=== PATIENT | male | born 1950 | race Caucasian/White ===

== ENCOUNTER 2017-10-28 12:21 | Inpatient (IN) | payer OTHER ==
[~2017-10-28] VITALS: Ht 177.8 cm; Wt 117.9 kg
[2017-10-28] MEDS ORDERED: FURO20TA3 PO (13:47)
[2017-10-28] MEDS ORDERED: OMEG-72 PO (13:47)
[2017-10-28] MEDS ORDERED: CHOL100011 PO (13:47)
[2017-10-28] MEDS ORDERED: BUPR100T11 PO (13:47)
[2017-10-28] MEDS ORDERED: GLIP5TAB10 PO (13:47)
[2017-10-28] MEDS ORDERED: ATOR-2 PO (13:47)
[2017-10-28] MEDS ORDERED: CLOP75TA PO (13:47)
[2017-10-28] MEDS ORDERED: NITR0.4T28 SL (13:47)
[2017-10-28] MEDS ORDERED: CARV3.122 PO (13:47)
[2017-10-28] MEDS ORDERED: METF500T5 PO (13:47)
[2017-10-28 13:50] VITALS: BP 129/79
[2017-10-28] MEDS ORDERED: POLYETHYLENE GLYCOL 17 GM PACKET PO PRN (14:30)
[2017-10-28] MEDS ORDERED: hydrALAzine 20 MG/ML, 1ML IVPush PRN (14:30)
[2017-10-28] MEDS ORDERED: ONDANSETRON 2MG/ML, 2ML IVPush PRN (14:30)
[2017-10-28] MEDS: BUPROPION SR 150 MG TABLET PO SCH (14:30)
[2017-10-28] MEDS ORDERED: BISACODYL 10 MG SUPP PR PRN (14:30)
[2017-10-28] MEDS ORDERED: DIPHENHYDRAMINE 25 MG CAPSULE PO PRN (14:30)
[2017-10-28] MEDS ORDERED: VANCOMYCIN PER PHARMACY MC PRN (14:30)
[2017-10-28] MEDS ORDERED: PHARMACOKINETIC MONITORING MC PRN (14:30)
[2017-10-28] MEDS ORDERED: ACETAMINOPHEN 325 MG TABLET PO PRN (14:30)
[2017-10-28] MEDS ORDERED: DOCUSATE 100 MG CAPSULE PO PRN (14:30)
[2017-10-28] MEDS: ENOXAPARIN 40 MG/0.4 ML SQ SCH (14:30)
[2017-10-28 14:59] LABS: CREATININE 0.91 mg/dL (0.7-1.3)
[2017-10-28] MEDS ORDERED: VANCOMYCIN 1,800 MG in SODIUM CHLORIDE 0.9% 250 ML IV ONE (15:00)
[2017-10-28] MEDS: PIPERACILLIN/TAZO/PMX 3.375GM 50 ML IV SCH ×2 (15:39→20:59)
[2017-10-28] MEDS: OMEGA-3/FISH OIL CAPSULE PO SCH (15:49)
[2017-10-28 15:58] LABS: HEMOGLOBIN A1C 10.2 % (4.2-6.3)
[2017-10-28] MEDS: INSULIN LISPRO 100 UNITS/ML, PEN SQ-INSULIN SCH ×2 (17:28→20:59)
[2017-10-28 18:44] VITALS: BP 125/78
[2017-10-28] MEDS: ATORVASTATIN 80 MG TABLET PO SCH (20:59)
[2017-10-28] MEDS: CARVEDILOL 3.125 MG TABLET PO SCH (20:59)
[2017-10-28] MEDS: FUROSEMIDE 20 MG TABLET PO SCH (21:00)
[2017-10-28] MEDS: SODIUM CHLORIDE FLUSH 10ML SYR IVF SCH (21:00)
[2017-10-28] MEDS: KETOROLAC 30 MG/1 ML IVPush PRN (21:01)
[2017-10-29 00:41] VITALS: BP 99/64
[2017-10-29] MEDS: BUPROPION SR 150 MG TABLET PO SCH ×2 (03:17→13:51)
[2017-10-29] MEDS: PIPERACILLIN/TAZO/PMX 3.375GM 50 ML IV SCH ×4 (03:17→22:21)
[2017-10-29] MEDS: VANCOMYCIN 2,000 MG in SODIUM CHLORIDE 0.9% 500 ML IV SCH ×2 (05:14→23:05)
[2017-10-29 05:21] LABS: BASOPHILS # (AUTO) 0.04 x10^3/uL (0-0.1); BASOPHILS % (AUTO) 0 % (0-1); EOSINOPHILS # (AUTO) 0.18 x10^3/uL (0-0.4); EOSINOPHILS % (AUTO) 1 % (1-7); LYMPHOCYTES # (AUTO) 3.31 x10^3/uL (1-3.4); LYMPHOCYTES % (AUTO) 21 % (22-44); MD NO; MEAN CORPUSCULAR HEMOGLOBIN 30.2 pg (27.5-34.5); MEAN CORPUSCULAR HGB CONC 33.5 g/dL (33.2-36.2); MEAN CORPUSCULAR VOLUME 90.2 fL (81-97); MEAN PLATELET VOLUME 10.1 fL (7.4-10.4); MONOCYTES # (AUTO) 1.19 x10^3/uL (0.2-0.8); MONOCYTES % (AUTO) 8 % (2-9); NEUTROPHILS # (AUTO) 10.85 x10^3/uL (1.8-6.8); NEUTROPHILS % (AUTO) 70 % (42-75); PLATELET COUNT 135 x10^3/uL (130-400); RED BLOOD COUNT 5.05 x10^6/uL (4.38-5.82); RED CELL DISTRIBUTION WIDTH 14.1 % (9.4-14.8)
[2017-10-29 05:32] LABS: ANION GAP 6 mmol/L (5-15); CALCIUM 9.1 mg/dL (8.5-10.1); CHLORIDE 97 mmol/L (98-107); CREATININE 0.93 mg/dL (0.7-1.3)
[2017-10-29 07:08] VITALS: BP 104/66
[2017-10-29] MEDS: INSULIN LISPRO 100 UNITS/ML, PEN SQ-INSULIN SCH ×4 (08:35→20:10)
[2017-10-29] MEDS: CHOLECALCIFEROL 1,000 UNIT TABLET PO SCH (08:35)
[2017-10-29] MEDS: FUROSEMIDE 20 MG TABLET PO SCH ×2 (08:36→20:10)
[2017-10-29] MEDS: OMEGA-3/FISH OIL CAPSULE PO SCH ×3 (08:36→16:45)
[2017-10-29] MEDS: CARVEDILOL 3.125 MG TABLET PO SCH ×2 (08:36→20:10)
[2017-10-29] MEDS ORDERED: INSULIN GLARGINE 100 UNITS/ML, PEN SQ-INSULIN SCH (09:00)
[2017-10-29] MEDS: SODIUM CHLORIDE FLUSH 10ML SYR IVF SCH ×2 (09:00→20:11)
[2017-10-29] MEDS: INSULIN GLARGINE 100 UNITS/ML, PEN SQ-INSULIN SCH (09:45)
[2017-10-29] MEDS: CLOPIDOGREL 75 MG TABLET PO SCH (09:45)
[2017-10-29 12:34] VITALS: BP 99/63
[2017-10-29] MEDS: ENOXAPARIN 40 MG/0.4 ML SQ SCH (13:51)
[2017-10-29] MEDS: KETOROLAC 30 MG/1 ML IVPush PRN ×2 (13:51→21:20)
[2017-10-29 15:00] LABS: HCT (SEDRATE) 43.3 % (39.2-51.8)
[2017-10-29] MEDS ORDERED: GADOBUTROL 10 MMOL/10 ML PFS ONE (18:14)
[2017-10-29 19:14] VITALS: BP 103/65
[2017-10-29] MEDS: ATORVASTATIN 80 MG TABLET PO SCH (20:10)
[2017-10-30 01:34] VITALS: BP 102/66
[2017-10-30] MEDS: BUPROPION SR 150 MG TABLET PO SCH ×2 (02:36→15:23)
[2017-10-30] MEDS: PIPERACILLIN/TAZO/PMX 3.375GM 50 ML IV SCH ×4 (03:31→19:57)
[2017-10-30 05:13] LABS: ANION GAP 7 mmol/L (5-15); CALCIUM 8.3 mg/dL (8.5-10.1); CHLORIDE 99 mmol/L (98-107); CREATININE 0.87 mg/dL (0.7-1.3)
[2017-10-30 05:16] LABS: BASOPHILS # (AUTO) 0.03 x10^3/uL (0-0.1); BASOPHILS % (AUTO) 0 % (0-1); EOSINOPHILS # (AUTO) 0.14 x10^3/uL (0-0.4); EOSINOPHILS % (AUTO) 1 % (1-7); LYMPHOCYTES # (AUTO) 2.02 x10^3/uL (1-3.4); LYMPHOCYTES % (AUTO) 21 % (22-44); MD NO; MEAN CORPUSCULAR HEMOGLOBIN 30.5 pg (27.5-34.5); MEAN CORPUSCULAR HGB CONC 33.5 g/dL (33.2-36.2); MEAN CORPUSCULAR VOLUME 90.9 fL (81-97); MEAN PLATELET VOLUME 10.1 fL (7.4-10.4); MONOCYTES # (AUTO) 0.66 x10^3/uL (0.2-0.8); MONOCYTES % (AUTO) 7 % (2-9); NEUTROPHILS # (AUTO) 6.84 x10^3/uL (1.8-6.8); NEUTROPHILS % (AUTO) 71 % (42-75); PLATELET COUNT 133 x10^3/uL (130-400); RED BLOOD COUNT 4.58 x10^6/uL (4.38-5.82); RED CELL DISTRIBUTION WIDTH 14.3 % (9.4-14.8)
[2017-10-30] MEDS: INSULIN LISPRO 100 UNITS/ML, PEN SQ-INSULIN SCH ×4 (08:14→19:58)
[2017-10-30] MEDS: INSULIN GLARGINE 100 UNITS/ML, PEN SQ-INSULIN SCH (08:14)
[2017-10-30] MEDS: KETOROLAC 30 MG/1 ML IVPush PRN ×2 (08:14→20:07)
[2017-10-30] MEDS: CARVEDILOL 3.125 MG TABLET PO SCH ×2 (09:00→19:57)
[2017-10-30] MEDS: SODIUM CHLORIDE FLUSH 10ML SYR IVF SCH ×2 (09:00→19:57)
[2017-10-30] MEDS: CLOPIDOGREL 75 MG TABLET PO SCH (09:29)
[2017-10-30] MEDS: OMEGA-3/FISH OIL CAPSULE PO SCH ×3 (09:29→17:00)
[2017-10-30] MEDS: CHOLECALCIFEROL 1,000 UNIT TABLET PO SCH (09:29)
[2017-10-30] MEDS: FUROSEMIDE 20 MG TABLET PO SCH ×2 (09:30→21:00)
[2017-10-30 09:36] VITALS: BP 97/58
[2017-10-30 14:17] VITALS: BP 82/51
[2017-10-30] MEDS: ENOXAPARIN 40 MG/0.4 ML SQ SCH (14:30)
[2017-10-30] MEDS: VANCOMYCIN 2,000 MG in SODIUM CHLORIDE 0.9% 500 ML IV SCH (17:03)
[2017-10-30 18:09] VITALS: BP 109/71
[2017-10-30 18:55] VITALS: BP 128/79
[2017-10-30] MEDS: ATORVASTATIN 80 MG TABLET PO SCH (19:57)
[2017-10-31 01:18] VITALS: BP 104/65
[2017-10-31] MEDS: BUPROPION SR 150 MG TABLET PO SCH (03:37)
[2017-10-31] MEDS: PIPERACILLIN/TAZO/PMX 3.375GM 50 ML IV SCH ×2 (03:37→08:20)
[2017-10-31] MEDS: CHOLECALCIFEROL 1,000 UNIT TABLET PO SCH (08:17)
[2017-10-31] MEDS: SODIUM CHLORIDE FLUSH 10ML SYR IVF SCH (08:18)
[2017-10-31] MEDS: OMEGA-3/FISH OIL CAPSULE PO SCH (08:18)
[2017-10-31] MEDS: CLOPIDOGREL 75 MG TABLET PO SCH (08:18)
[2017-10-31] MEDS: CARVEDILOL 3.125 MG TABLET PO SCH (08:18)
[2017-10-31] MEDS: FUROSEMIDE 20 MG TABLET PO SCH (08:19)
[2017-10-31] MEDS: INSULIN LISPRO 100 UNITS/ML, PEN SQ-INSULIN SCH (08:21)
[2017-10-31 08:23] VITALS: BP 148/76
[2017-10-31] MEDS ORDERED: INSULIN GLARGINE 100 UNITS/ML, PEN SQ-INSULIN SCH (09:00)
== END 2017-10-31 09:45 | disposition left against medical advice (07) | DRG 872 ==
LOC: 3NE 13:23
PROVIDERS: ADMIT Internal Medicine; ATTEND Internal Medicine
DX: A41.9 Sepsis, unspecified organism (principal); L03.113 Cellulitis of right upper limb; E87.1 Hypo-osmolality and hyponatremia; L02.413 Cutaneous abscess of right upper limb; I50.9 Heart failure, unspecified; E11.65 Type 2 diabetes mellitus with hyperglycemia; E78.5 Hyperlipidemia, unspecified; I25.10 Atherosclerotic heart disease of native coronary artery without angina pectoris; I35.0 Nonrheumatic aortic (valve) stenosis; D72.829 Elevated white blood cell count, unspecified; B96.89 Other specified bacterial agents as the cause of diseases classified elsewhere; B95.61 Methicillin susceptible Staphylococcus aureus infection as the cause of diseases classified elsewhere; B95.2 Enterococcus as the cause of diseases classified elsewhere; M60.9 Myositis, unspecified; Z83.3 Family history of diabetes mellitus; Z79.84 Long term (current) use of oral hypoglycemic drugs; Z87.891 Personal history of nicotine dependence; Z95.2 Presence of prosthetic heart valve; Z90.49 Acquired absence of other specified parts of digestive tract; Z95.5 Presence of coronary angioplasty implant and graft; Z80.9 Family history of malignant neoplasm, unspecified; Z79.899 Other long term (current) drug therapy; Z53.21 Procedure and treatment not carried out due to patient leaving prior to being seen by health care provider
CPT/HCPCS: 36415; 80048; 82565; 82947; 82962; 83036; 83735; 84520; 85025; 85651; 86140; 87040; 87046; 87070; 87077; 87186; 87205; 87427; 89055; A9585; J1885; J2543; J3370; J1815; J7040; Q0163